=== PATIENT | male | born 1970 ===

== ENCOUNTER 2022-07-26 06:40 | Day surgery (SDC) | payer BC ==
[2022-07-26 07:43] VITALS: BP 110/77; TEMP 97.7
[2022-07-26 07:50] LABS: Anion Gap 17 mmol/L (10-20); BUN (Urea Nitrogen) 21 mg/dL (8.4-25.7); Calc. Creatinine Clearance 79 mL/min (70-130); Calcium 9.3 mg/dL (7.8-10.44); Carbon Dioxide 15 mmol/L (22-29); Chloride 113 mmol/L (98-107); Estimated GFR 54; Glucose 114 mg/dL (70-105); Potassium 4.3 mmol/L (3.5-5.1); Sodium 141 mmol/L (136-145)
[2022-07-26] MEDS ORDERED: PROPOFOL 20 ML ONE (07:54)
[2022-07-26] MEDS ORDERED: FLU VACC QS2022-23(6MOS UP)/PF 60 MCG/0.5 ML SYRINGE IM ONE (09:00)
== END 2022-07-26 09:09 | disposition home or self-care (01) ==
LOC: CSHSDC 06:40
PROVIDERS: ATTEND Specialist
PROC: 5A2204Z Restoration of Cardiac Rhythm, Single (ICD-10-PCS; principal; 2022-07-26)
DX: I48.3 Typical atrial flutter (principal); I48.19 Other persistent atrial fibrillation; I08.1 Rheumatic disorders of both mitral and tricuspid valves; I11.0 Hypertensive heart disease with heart failure; I50.9 Heart failure, unspecified; I42.0 Dilated cardiomyopathy; E78.2 Mixed hyperlipidemia; Z79.01 Long term (current) use of anticoagulants; Z79.899 Other long term (current) drug therapy
CPT/HCPCS: 80048; 92960; 93005; 93010; J2704

== ENCOUNTER 2022-08-10 18:48 | Inpatient (IN) | payer BC ==
[2022-08-10 19:45] LABS: #Basophils 0.1 10x3/uL (0.0-0.2); #Eosinphils 0.1 10x3/uL (0.0-0.5); #Monocytes 0.6 10x3/uL (0.0-1.1); #Neutrophils 4.6 10x3/uL (1.5-8.4); %Basophils 0.7 % (0.0-2.0); %Eosinophils 0.9 % (0.0-6.0); %Lymphocytes 30.4 % (18.0-47.0); %Monocytes 7.5 % (0.0-10.0); %Neutrophils 60.4 % (40.0-75.0); Hemoglobin 16.7 g/dL (13.5-17.5); Mean Corpuscular HGB CONC 33.7 g/dL (32.0-36.0); Mean Corpuscular Hemoglobin 32.6 pg (27.0-33.0); Mean Corpuscular Volume 96.5 fl (81.2-95.1); Mean Platelet Volume 12.6 fl (7.4-10.4); Platelet Count 226 10x3/uL (150-450); RBC Distribution Width 13.9 % (11.5-14.5); Red Blood Cell (RBC) Count 5.13 10x6/uL (4.32-5.72); White Blood Cell (WBC) Count 7.6 10x3/uL (3.5-10.5)
[2022-08-10 19:54] LABS: ALT (SGPT) 53 U/L (8-55); AST (SGOT) 28 U/L (5-34); Albumin 4.1 g/dL (3.5-5.0); Alkaline Phosphatase 86 U/L (40-110); Anion Gap 15 mmol/L (10-20); BUN (Urea Nitrogen) 26 mg/dL (8.4-25.7); Bilirubin, Total 1.1 mg/dL (0.2-1.2); Calc. Creatinine Clearance 0 mL/min (70-130); Calcium 9.5 mg/dL (7.8-10.44); Carbon Dioxide 23 mmol/L (22-29); Chloride 106 mmol/L (98-107); Estimated GFR 42; Globulin 2.3 g/dL (2.4-3.5); Glucose 67 mg/dL (70-105); Protein, Total 6.4 g/dL (6.0-8.3); Sodium 140 mmol/L (136-145)
[2022-08-10] MEDS ORDERED: Furosemide 40 MG/4 ML VIAL ONE (20:26)
[2022-08-10] MEDS ORDERED: Ondansetron PF 4 MG/2 ML Vial IVP PRN (21:24)
[2022-08-10] MEDS ORDERED: Guaifenesin DM 100-10/5 ML UDCUP PO PRN (21:24)
[2022-08-10] MEDS ORDERED: Calcium Carbonate 500 MG ChewTAB PO PRN (21:24)
[2022-08-10] MEDS ORDERED: Zolpidem Tartrate 5 MG TAB PO PRN (21:24)
[2022-08-10] MEDS ORDERED: Acetaminophen 325 MG TAB PO PRN (21:24)
[2022-08-10] MEDS ORDERED: Senokot S 8.6-50 MG TAB PO PRN (21:24)
[2022-08-10 21:27] LABS: Bilirubin Neg (Negative); Blood, Urine Negative (Negative); Clarity Clear (Clear); Glucose, Urine (Dipstick) Normal (Negative); Ketone, Urine Negative (Negative); Leukocyte Negative (Negative); Nitrite Negative (Negative); Protein, Urine (Dipstick) Negative (Neg-Trace); Urobilinogen Normal mg/dL (Less than 2); pH, Urine 6.5 (5.0-9.0)
[2022-08-10] MEDS ORDERED: Midodrine HCl 5 MG TAB PO SCH (21:30)
[2022-08-10] MEDS ORDERED: Apixaban 5 MG TAB PO SCH (21:45)
[2022-08-10 21:48] VITALS: BMI 27.2
[2022-08-10] MEDS ORDERED: Digoxin 0.125 MG TAB PO SCH (22:00)
[2022-08-10] MEDS ORDERED: Apixaban 5 MG TAB ONE (22:22)
[2022-08-10] MEDS ORDERED: Digoxin 0.125 MG TAB ONE (22:22)
[2022-08-11 04:16] LABS: Anion Gap 15 mmol/L (10-20); BUN (Urea Nitrogen) 25 mg/dL (8.4-25.7); Calc. Creatinine Clearance 61 mL/min (70-130); Calcium 8.8 mg/dL (7.8-10.44); Carbon Dioxide 20 mmol/L (22-29); Chloride 109 mmol/L (98-107); Estimated GFR 41; Glucose 98 mg/dL (70-105); Magnesium 1.9 mg/dL (1.6-2.6); Sodium 140 mmol/L (136-145)
[2022-08-11] MEDS ORDERED: PROPOFOL 200 MG/20 ML VIAL ONE (08:00)
[2022-08-11] MEDS ORDERED: Apixaban 5 MG TAB ONE ×2 (09:19→20:54)
[2022-08-11] MEDS ORDERED: Digoxin 0.25 MG TAB ONE (09:19)
[2022-08-11] MEDS ORDERED: Metoprolol Tartrate 25 MG TAB ONE ×2 (09:19→20:57)
[2022-08-11] MEDS ORDERED: Furosemide 40 MG/4 ML VIAL ONE (09:20)
[2022-08-11] MEDS ORDERED: Atorvastatin Calcium 40 MG TAB ONE (09:21)
[2022-08-11] MEDS: Metoprolol Tartrate 25 MG TAB PO SCH ×2 (09:30→21:07)
[2022-08-11] MEDS: Atorvastatin Calcium 40 MG TAB PO SCH (09:30)
[2022-08-11] MEDS: Furosemide 20 MG/2 ML VIAL SLOW IVP SCH (09:30)
[2022-08-11] MEDS: Digoxin 0.25 MG TAB PO SCH (09:30)
[2022-08-11] MEDS: Apixaban 5 MG TAB PO SCH ×2 (09:30→21:07)
[2022-08-11] MEDS: Amiodarone 200 MG TAB PO SCH ×2 (16:05→21:07)
[2022-08-12 04:17] LABS: #Basophils 0.1 10x3/uL (0.0-0.2); #Eosinphils 0.1 10x3/uL (0.0-0.5); #Monocytes 0.6 10x3/uL (0.0-1.1); #Neutrophils 5.6 10x3/uL (1.5-8.4); %Basophils 0.7 % (0.0-2.0); %Eosinophils 0.7 % (0.0-6.0); %Lymphocytes 27.8 % (18.0-47.0); %Monocytes 7.2 % (0.0-10.0); %Neutrophils 63.4 % (40.0-75.0); Hemoglobin 16.3 g/dL (13.5-17.5); Mean Corpuscular HGB CONC 33.7 g/dL (32.0-36.0); Mean Corpuscular Hemoglobin 32.1 pg (27.0-33.0); Mean Corpuscular Volume 95.1 fl (81.2-95.1); Mean Platelet Volume 12.7 fl (7.4-10.4); Platelet Count 182 10x3/uL (150-450); RBC Distribution Width 13.9 % (11.5-14.5); Red Blood Cell (RBC) Count 5.08 10x6/uL (4.32-5.72); White Blood Cell (WBC) Count 8.9 10x3/uL (3.5-10.5)
[2022-08-12 04:33] LABS: Anion Gap 11 mmol/L (10-20); BUN (Urea Nitrogen) 24 mg/dL (8.4-25.7); Calc. Creatinine Clearance 72 mL/min (70-130); Calcium 8.9 mg/dL (7.8-10.44); Carbon Dioxide 21 mmol/L (22-29); Chloride 106 mmol/L (98-107); Estimated GFR 50; Glucose 97 mg/dL (70-105); Sodium 134 mmol/L (136-145)
[2022-08-12] MEDS: Amiodarone 200 MG TAB PO SCH (09:48)
[2022-08-12] MEDS: Metoprolol Tartrate 25 MG TAB PO SCH (09:48)
[2022-08-12] MEDS: Furosemide 20 MG/2 ML VIAL SLOW IVP SCH (09:49)
[2022-08-12] MEDS: Atorvastatin Calcium 40 MG TAB PO SCH (09:49)
[2022-08-12] MEDS: Digoxin 0.25 MG TAB PO SCH (09:49)
[2022-08-12] MEDS: Apixaban 5 MG TAB PO SCH (09:49)
[2022-08-12 15:55] VITALS: BP 118/75; TEMP 97.8
[2022-08-13] MEDS ORDERED: Spironolactone 25 MG TAB PO SCH (08:00)
[2022-08-13] MEDS ORDERED: Furosemide 20 MG TAB PO SCH (09:00)
== END 2022-08-12 16:35 | disposition home or self-care (01) | DRG 291 ==
LOC: CSHERS 18:48 → CSHERHOLD 21:43 → CSHTELE 08-11 22:20
PROVIDERS: ADMIT Student in an Organized Health Care Education/Training Program; ATTEND Family Medicine
PROC: 5A2204Z Restoration of Cardiac Rhythm, Single (ICD-10-PCS; principal; 2022-08-11)
DX: I13.0 Hypertensive heart and chronic kidney disease with heart failure and stage 1 through stage 4 chronic kidney disease, or unspecified chronic kidney disease (principal); I50.23 Acute on chronic systolic (congestive) heart failure; J96.01 Acute respiratory failure with hypoxia; I48.92 Unspecified atrial flutter; I42.8 Other cardiomyopathies; I42.0 Dilated cardiomyopathy; I48.0 Paroxysmal atrial fibrillation; E78.2 Mixed hyperlipidemia; G47.33 Obstructive sleep apnea (adult) (pediatric); Z66 Do not resuscitate; I34.0 Nonrheumatic mitral (valve) insufficiency; I25.118 Atherosclerotic heart disease of native coronary artery with other forms of angina pectoris; N18.30 Chronic kidney disease, stage 3 unspecified; Z79.899 Other long term (current) drug therapy; Z82.49 Family history of ischemic heart disease and other diseases of the circulatory system; Z79.01 Long term (current) use of anticoagulants
CPT/HCPCS: 36415; 71045; 80048; 80053; 81003; 83605; 83735; 83880; 84443; 84484; 85025; 92960; 93005; 93010; 93306; 94760; 96361; 96374; J1940; J2704